=== PATIENT | male | born 1995 | race Caucasian/White ===

== ENCOUNTER 2018-09-04 23:24 | Emergency (ER) | payer OTHER ==
[~2018-09-04] VITALS: Ht 165.1 cm; Wt 72.6 kg
[2018-09-04] MEDS ORDERED: Advair Hfa 230-12 GM INH (23:54)
[2018-09-04] MEDS ORDERED: Prednisone50 MG PO (23:54)
[2018-09-04] MEDS ORDERED: ALBU90OI INH (23:54)
== END 2018-09-05 00:03 | disposition home or self-care (01) ==
LOC: ER 23:24
DX: J45.901 Unspecified asthma with (acute) exacerbation (principal); Z79.51 Long term (current) use of inhaled steroids
CPT/HCPCS: 94640; 99284-25